=== PATIENT | female | born 2000 | race Hispanic/Latino ===

== ENCOUNTER 2023-08-17 19:30 | Inpatient (IN) | payer OTHER ==
[2023-08-18] MEDS ORDERED: hydrALAZINE 20 MG/ML VIAL SLOW IVP PRN ×3 (03:59→23:26)
[2023-08-18] MEDS ORDERED: Ibuprofen 800 MG TAB PO PRN (03:59)
[2023-08-18] MEDS ORDERED: Lidocaine 1% (PF) 30 ML VIAL SC PRN (03:59)
[2023-08-18] MEDS ORDERED: Oxytocin 30 units/NS 500 ML 500 ML IV SCH ×2 (04:00→04:15)
[2023-08-18] MEDS ORDERED: Misoprostol 100 MCG TAB VAG SCH ×2 (04:00→05:00)
[2023-08-18] MEDS ORDERED: Penicillin G Potassium 5 MILL.UNITS in Sodium Chloride 0.9% 100 ML IVPB SCH (04:00)
[2023-08-18] MEDS ORDERED: Misoprostol 200 MCG TAB PR PRN (04:01)
[2023-08-18] MEDS ORDERED: Promethazine HCl 25 MG/ML VIAL IM PRN ×2 (04:01→16:46)
[2023-08-18] MEDS ORDERED: Ondansetron PF 4 MG/2 ML Vial IVP PRN ×2 (04:01→16:46)
[2023-08-18] MEDS ORDERED: Tranexamic Acid 1,000 MG/10 ML VIAL IVP PRN (04:01)
[2023-08-18] MEDS ORDERED: Diphenoxylate HCl/Atropine Tablet PO PRN (04:01)
[2023-08-18] MEDS ORDERED: Carboprost 250 MCG/ML AMP IM PRN (04:01)
[2023-08-18] MEDS ORDERED: Acetaminophen 500 MG TAB PO PRN (04:01)
[2023-08-18] MEDS ORDERED: Methylergonovine 0.2 MG/ML VIAL IM PRN (04:01)
[2023-08-18 04:16] VITALS: BMI 36.1
[2023-08-18 04:26] LABS: Hematocrit 33.7 % (34.9-44.5); Hemoglobin 11.3 g/dL (12.0-15.5); Mean Corpuscular HGB CONC 33.5 g/dL (32.0-36.0); Mean Corpuscular Hemoglobin 28.5 pg (27.0-33.0); Mean Corpuscular Volume 85.1 fl (81.6-98.3); Mean Platelet Volume 10.7 fl (7.4-10.4); Platelet Count 235 10x3/uL (150-450); RBC Distribution Width 12.3 % (11.5-14.5); Red Blood Cell (RBC) Count 3.96 10x6/uL (3.90-5.03); White Blood Cell (WBC) Count 7.1 10x3/uL (3.5-10.5)
[2023-08-18 04:56] LABS: Syphilis Antibody Nonreactive (Nonreactive); Syphilis Antibody Index 0.04 S/CO (<1.00 Non-Reactive)
[2023-08-18 04:58] LABS: HBSAg Index 0.23 S/CO (0-0.99); Hep B Surf Ag - L&D Non-Reactive S/CO (NonReactive)
[2023-08-18] MEDS: Penicillin G 2.5 MILL.units 2.5 MILL.UNITS in Premix 1 BAG IVPB SCH ×4 (09:34→21:11)
[2023-08-18] MEDS ORDERED: fentaNYL/Ropivacaine Epidural 100 ML ONE (16:22)
[2023-08-18] MEDS ORDERED: Lactated Ringer's 500 ML IV PRN (16:46)
[2023-08-18] MEDS ORDERED: Moisturizing Cream (Eucerin) 113 GM JAR TOP PRN (16:46)
[2023-08-18] MEDS ORDERED: ePHEDrine Sulfate 50 MG/10 ML VIAL SLOW IVP PRN (16:46)
[2023-08-18] MEDS ORDERED: Naloxone HCl 0.4 mg/ml Vial IVP PRN ×2 (16:46)
[2023-08-18] MEDS ORDERED: Acetaminophen 325 MG TAB PO PRN (16:46)
[2023-08-18] MEDS ORDERED: diphenhydrAMINE 50 MG/ML VIAL IVP PRN (16:46)
[2023-08-18] MEDS ORDERED: Communication Order-Pharmacy FS SCH (17:00)
[2023-08-18] MEDS ORDERED: fentaNYL 2 mcg/Ropivacaine 0.2% Epidural 100 ML CADD EPIDURAL SCH (17:00)
[2023-08-18] MEDS: Misoprostol 100 MCG TAB VAG SCH ×3 (17:22→22:06)
[2023-08-18] MEDS: Lactated Ringer's 1,000 ML IV SCH ×2 (20:42→21:11)
[2023-08-18] MEDS ORDERED: Lanolin Ointment 7 GM TUBE TOP PRN (23:26)
[2023-08-18] MEDS ORDERED: Bisacodyl 10 MG SUPP PR PRN (23:26)
[2023-08-18] MEDS ORDERED: Milk Of Magnesia 30 ML UDCUP PO PRN (23:26)
[2023-08-18] MEDS ORDERED: Boostrix 0.5 ML (Tdap) VIAL (>/=7 yrs of age) IM ONE (23:26)
[2023-08-19] MEDS: Penicillin G 2.5 MILL.units 2.5 MILL.UNITS in Premix 1 BAG IVPB SCH (02:05)
[2023-08-19] MEDS ORDERED: Acetaminophen 500 MG TAB PO SCH (02:15)
[2023-08-19] MEDS ORDERED: Ibuprofen 800 MG TAB PO SCH (02:15)
[2023-08-19] MEDS: Ferrous Sulfate 325 MG TAB PO SCH ×2 (08:03→13:46)
[2023-08-19] MEDS: Docusate 100 MG CAP PO SCH ×2 (08:36→21:41)
[2023-08-19] MEDS: Prenatal Vitamin 1 TAB PO SCH (08:36)
[2023-08-19] MEDS: Ibuprofen 800 MG TAB PO SCH ×2 (09:43→17:37)
[2023-08-19] MEDS ORDERED: Ibuprofen 800 MG TAB PO PRN (12:00)
[2023-08-19] MEDS ORDERED: Acetaminophen 500 MG TAB PO PRN (12:00)
[2023-08-19] MEDS ORDERED: HYDROcodone/Acetaminophen 5/325 mg Tablet PO SCH (18:33)
[2023-08-20] MEDS: Ibuprofen 800 MG TAB PO SCH ×2 (01:02→09:28)
[2023-08-20] MEDS: Ferrous Sulfate 325 MG TAB PO SCH (07:22)
[2023-08-20 07:46] VITALS: BP 104/57; TEMP 98.2
[2023-08-20] MEDS ORDERED: HYDROcodone/Acetaminophen 5/325 mg Tablet PO SCH ×2 (09:00→12:00)
[2023-08-20] MEDS: Docusate 100 MG CAP PO SCH (09:28)
[2023-08-20] MEDS: Prenatal Vitamin 1 TAB PO SCH (09:28)
== END 2023-08-20 13:55 | disposition home or self-care (01) | DRG 806 ==
LOC: CSHLD 08-18 02:56 → CSHPP 08-19 01:15
PROVIDERS: ADMIT Obstetrics & Gynecology; ATTEND Obstetrics & Gynecology
PROC: 10E0XZZ Delivery of Products of Conception, External Approach (ICD-10-PCS; principal; 2023-08-18)
PROC: 0HQ9XZZ Repair Perineum Skin, External Approach (ICD-10-PCS; 2023-08-18)
PROC: 10907ZC Drainage of Amniotic Fluid, Therapeutic from Products of Conception, Via Natural or Artificial Opening (ICD-10-PCS; 2023-08-18)
PROC: 3E033XZ Introduction of Vasopressor into Peripheral Vein, Percutaneous Approach (ICD-10-PCS; 2023-08-18)
DX: O99.214 Obesity complicating childbirth (principal); O98.32 Other infections with a predominantly sexual mode of transmission complicating childbirth; Z37.0 Single live birth; A56.02 Chlamydial vulvovaginitis; Z3A.39 39 weeks gestation of pregnancy; O99.824 Streptococcus B carrier state complicating childbirth; O70.0 First degree perineal laceration during delivery
CPT/HCPCS: 85027; 86780; 86850; 86900; 86901; 87340; J2540; J2590; J3490; J7120